=== PATIENT | female | born 1990 | race Two or more races ===

== ENCOUNTER → 2017-09-29 | Outpatient (CLI) | payer OTHER ==
[~2017-09-29] VITALS: Ht 152.4 cm; Wt 81.6 kg
== END | disposition home or self-care (01) ==
LOC: PPHC 15:39
DX: N64.4 Mastodynia (principal)

== ENCOUNTER → 2017-09-30 08:30 | Outpatient (CLI) | payer OTHER | END | disposition home or self-care (01) | LOC: LAB 08:30 | DX: R42 Dizziness and giddiness (principal); R51 Headache; K62.5 Hemorrhage of anus and rectum ==

== ENCOUNTER 2017-10-04 10:05 | Outpatient (CLI) | payer OTHER | END 2017-10-04 13:02 | disposition home or self-care (01) | LOC: LAB 10:05 | DX: R42 Dizziness and giddiness (principal); R51 Headache; K62.5 Hemorrhage of anus and rectum ==

== ENCOUNTER 2017-10-05 14:09 | Outpatient (CLI) | payer OTHER | END 2017-10-05 14:47 | disposition home or self-care (01) | LOC: SONOGRAMA 14:09 → MAMO-SONO 14:15 → SONOGRAMA 14:47 | DX: N64.4 Mastodynia (principal) ==

== ENCOUNTER → 2017-10-26 | Outpatient (CLI) | payer OTHER | END | disposition home or self-care (01) | LOC: LAB 17:18 | DX: A64 Unspecified sexually transmitted disease (principal) ==

== ENCOUNTER 2018-06-21 16:11 | Outpatient (CLI) | payer OTHER | END 2018-06-21 16:18 | disposition home or self-care (01) | LOC: LAB 16:11 | DX: J11.1 Influenza due to unidentified influenza virus with other respiratory manifestations (principal); J06.9 Acute upper respiratory infection, unspecified ==

== ENCOUNTER 2018-06-23 13:34 | Outpatient (CLI) | payer OTHER | END 2018-06-23 13:41 | disposition home or self-care (01) | LOC: RAD 13:34 | DX: R05 Cough (principal) ==

== ENCOUNTER 2018-07-12 23:07 | Emergency (ER) | payer OTHER ==
[~2018-07-12] VITALS: Ht 162.6 cm; Wt 81.6 kg
[2018-07-13] MEDS ORDERED: ZYNCOF 20-400120 ML PO (02:46)
[2018-07-13] MEDS ORDERED: ZYRTEC10 M2 PO (02:46)
[2018-07-13] MEDS ORDERED: ALBUTEROL2.5 MG/3 M IH (02:46)
== END 2018-07-13 03:05 | disposition home or self-care (01) ==
LOC: ER 23:07
DX: J06.9 Acute upper respiratory infection, unspecified (principal)

== ENCOUNTER 2018-08-20 19:18 | Emergency (ER) | payer OTHER ==
[~2018-08-20] VITALS: Ht 165.1 cm; Wt 81.6 kg
[~2018-08-20 19:18] MED LIST: ALBUTEROL2.5 MG/3 M IH; ZYNCOF 20-400120 ML PO; ZYRTEC10 M2 PO
== END 2018-08-20 21:57 | disposition home or self-care (01) ==
LOC: ER 19:18
DX: S93.402A Sprain of unspecified ligament of left ankle, initial encounter (principal); X50.3XXA Overexertion from repetitive movements, initial encounter; Y93.89 Activity, other specified; Y92.89 Other specified places as the place of occurrence of the external cause; Y99.8 Other external cause status

== ENCOUNTER 2018-08-21 14:50 | Outpatient (CLI) | payer OTHER | END 2018-08-21 14:55 | disposition home or self-care (01) | LOC: RAD 14:50 | DX: M79.672 Pain in left foot (principal) ==

== ENCOUNTER 2018-09-04 15:22 | Outpatient (CLI) | payer OTHER | END 2018-09-04 15:32 | disposition home or self-care (01) | LOC: TOM 15:22 | DX: S90.01XA Contusion of right ankle, initial encounter (principal) ==

== ENCOUNTER → 2018-10-30 10:58 | Outpatient (CLI) | payer OTHER | END | disposition home or self-care (01) | LOC: LAB 10:58 | DX: D64.89 Other specified anemias (principal) ==

== ENCOUNTER 2019-01-03 17:45 | Outpatient (CLI) | payer OTHER | END 2019-01-03 18:01 | disposition home or self-care (01) | LOC: LAB 17:45 | DX: M85.88 Other specified disorders of bone density and structure, other site (principal); E11.9 Type 2 diabetes mellitus without complications ==

== ENCOUNTER 2019-04-24 11:56 | Outpatient (CLI) | payer OTHER | END 2019-04-24 12:05 | disposition home or self-care (01) | LOC: LAB 11:56 | DX: E55.9 Vitamin D deficiency, unspecified (principal); E78.49 Other hyperlipidemia; Z00.00 Encounter for general adult medical examination without abnormal findings; R10.84 Generalized abdominal pain; J45.30 Mild persistent asthma, uncomplicated; R06.02 Shortness of breath ==

== ENCOUNTER 2019-04-29 07:41 | Outpatient (CLI) | payer OTHER | END 2019-04-29 07:54 | disposition home or self-care (01) | LOC: SONOGRAMA 07:41 | DX: R10.84 Generalized abdominal pain (principal) ==

== ENCOUNTER 2019-05-08 09:25 | Outpatient (CLI) | payer OTHER | END 2019-05-08 15:38 | disposition home or self-care (01) | LOC: LAB 09:25 | DX: R74.0 Nonspecific elevation of levels of transaminase and lactic acid dehydrogenase [LDH] (principal) ==

== ENCOUNTER 2019-05-28 13:56 | Outpatient (CLI) | payer OTHER | END 2019-05-28 16:03 | disposition home or self-care (01) | LOC: LAB 13:56 | DX: R74.0 Nonspecific elevation of levels of transaminase and lactic acid dehydrogenase [LDH] (principal) ==

== ENCOUNTER 2019-05-29 10:56 | Outpatient (CLI) | payer OTHER | END 2019-07-03 17:05 | disposition home or self-care (01) | LOC: NUCLEAR 10:56 | DX: R10.11 Right upper quadrant pain (principal) | CPT/HCPCS: 78227; A9537 ==

== ENCOUNTER 2019-06-13 06:16 | Day surgery (SDC) | payer OTHER ==
[~2019-06-13] VITALS: Ht 165.1 cm; Wt 67.1 kg
== END 2019-06-13 16:15 | disposition home or self-care (01) ==
LOC: ER 06:16 → CIR.AMB 09:41
DX: O03.4 Incomplete spontaneous abortion without complication (principal)

== ENCOUNTER 2019-07-30 15:44 | Outpatient (CLI) | payer OTHER | END 2019-07-30 18:00 | disposition home or self-care (01) | LOC: LAB 15:44 | DX: N91.1 Secondary amenorrhea (principal); R94.5 Abnormal results of liver function studies; E78.00 Pure hypercholesterolemia, unspecified; J11.1 Influenza due to unidentified influenza virus with other respiratory manifestations; R10.84 Generalized abdominal pain ==

== ENCOUNTER → 2020-02-14 15:16 | Outpatient (CLI) | payer OTHER | END | disposition home or self-care (01) | LOC: LAB 09:09 | PROVIDERS: ATTEND Obstetrics & Gynecology | DX: E78.00 Pure hypercholesterolemia, unspecified (principal) ==

== ENCOUNTER 2020-03-19 08:29 | Emergency (ER) | payer OTHER ==
[~2020-03-19] VITALS: Ht 165.1 cm; Wt 89.4 kg
[2020-03-19] MEDS ORDERED: ZITHROMAX500 MG PO (11:26)
[2020-03-19] MEDS ORDERED: PEPCID AC20 MG PO (11:35)
== END 2020-03-19 11:48 | disposition home or self-care (01) ==
LOC: ER 08:29
DX: B34.9 Viral infection, unspecified (principal); B96.0 Mycoplasma pneumoniae [M. pneumoniae] as the cause of diseases classified elsewhere

== ENCOUNTER → 2020-05-19 16:37 | Outpatient (CLI) | payer OTHER ==
[~2020-05-19 16:37] MED LIST changes: +PEPCID AC20 MG PO; +ZITHROMAX500 MG PO
== END | disposition home or self-care (01) ==
LOC: LAB 16:37
PROVIDERS: ATTEND General Practice
DX: R05 Cough (principal); Z11.3 Encounter for screening for infections with a predominantly sexual mode of transmission

== ENCOUNTER 2020-05-20 08:54 | Outpatient (CLI) | payer OTHER | END 2020-05-20 13:25 | disposition home or self-care (01) | LOC: RAD 08:54 | PROVIDERS: ATTEND General Practice | DX: R05 Cough (principal) ==

== ENCOUNTER 2020-05-25 08:06 | Outpatient (CLI) | payer OTHER | END 2020-05-25 08:09 | disposition home or self-care (01) | LOC: LAB 08:06 | PROVIDERS: ATTEND Obstetrics & Gynecology | DX: D64.89 Other specified anemias (principal); N39.0 Urinary tract infection, site not specified; E03.8 Other specified hypothyroidism; E78.00 Pure hypercholesterolemia, unspecified ==

== ENCOUNTER 2020-06-02 10:58 | Outpatient (CLI) | payer OTHER | END 2020-06-02 15:00 | disposition home or self-care (01) | LOC: PPH VACUNA 10:58 | DX: Z23 Encounter for immunization (principal) ==

== ENCOUNTER 2020-08-19 16:10 | Outpatient (CLI) | payer OTHER | END 2020-08-19 16:23 | disposition home or self-care (01) | LOC: RAD 16:10 | PROVIDERS: ATTEND Physical Medicine & Rehabilitation | DX: M54.2 Cervicalgia (principal); M54.5 Low back pain ==

== ENCOUNTER 2020-10-01 21:44 | Emergency (ER) | payer OTHER ==
[~2020-10-01] VITALS: Ht 165.1 cm; Wt 77.1 kg
[2020-10-02] MEDS ORDERED: KETO10TA2 PO (03:56)
== END 2020-10-02 03:59 | disposition home or self-care (01) ==
LOC: ER 21:44
DX: R10.31 Right lower quadrant pain (principal)

== ENCOUNTER 2020-10-16 08:15 | Outpatient (CLI) | payer OTHER ==
[~2020-10-16 08:15] MED LIST changes: +KETO10TA2 PO
== END 2020-10-16 15:00 | disposition home or self-care (01) ==
LOC: LAB 08:15
PROVIDERS: ATTEND Obstetrics & Gynecology
DX: D64.89 Other specified anemias (principal)

== ENCOUNTER 2020-12-07 07:45 | Emergency (ER) | payer OTHER ==
[~2020-12-07] VITALS: Ht 165.1 cm; Wt 77.1 kg
[2020-12-07] MEDS ORDERED: CLARITIN-D 121 EACH PO (10:20)
[2020-12-07] MEDS ORDERED: ZITHROMAX TRI-500 MG PO (10:20)
== END 2020-12-07 10:30 | disposition home or self-care (01) ==
LOC: ER 07:45
DX: B34.9 Viral infection, unspecified (principal); B96.0 Mycoplasma pneumoniae [M. pneumoniae] as the cause of diseases classified elsewhere; Z11.52 Encounter for screening for COVID-19

== ENCOUNTER 2021-02-11 07:45 | Outpatient (CLI) | payer OTHER ==
[~2021-02-11 07:45] MED LIST changes: +CLARITIN-D 121 EACH PO; +ZITHROMAX TRI-500 MG PO
== END 2021-02-11 08:01 | disposition home or self-care (01) ==
LOC: LAB 07:45
PROVIDERS: ATTEND Obstetrics & Gynecology
DX: E03.8 Other specified hypothyroidism (principal); E13.9 Other specified diabetes mellitus without complications; D64.89 Other specified anemias

== ENCOUNTER 2021-02-16 08:00 | Outpatient (CLI) | payer OTHER | END 2021-02-16 08:30 | disposition home or self-care (01) | LOC: PPH VACUNA 08:00 | DX: Z23 Encounter for immunization (principal) ==

== ENCOUNTER 2021-03-15 08:00 | Outpatient (CLI) | payer OTHER | END 2021-03-15 08:30 | disposition home or self-care (01) | LOC: PPH VACUNA 08:00 | PROVIDERS: ATTEND Emergency Medicine Pediatric Emergency Medicine | DX: Z23 Encounter for immunization (principal) ==